=== PATIENT | female | born 1980 | race Caucasian/White ===

== ENCOUNTER → 2019-01-27 16:52 | Observation (INO) ==
[2019-01-27 16:39] LABS: Amphetamine Screen,Urine Negative ng/mL (Cutoff=1000); Barbiturate Screen,Urine Negative ng/mL (Cutoff=200); Benzodiazepines Screen,Urine Negative ng/mL (Cutoff=200); Cannabinoid Screen,Urine Negative ng/mL (Cutoff = 50); Cocaine Screen,Urine Negative ng/mL (Cutoff= 300); Opiate Screen,Urine Negative ng/mL (Cutoff=300); Phencyclidine Screen,Urine Negative ng/mL (Cutoff=25)
--- NOTE | 2019-01-27 16:44 | OB/GYN Progress Note ---
Date of Encounter: 01/27/19 Time of Encounter: 16:43 - Assessment and Plan (1) 39 weeks gestation of Current Visit: Yes Status: Acute (2) Uterine contractions Current Visit: Yes Status: Acute No cervical change on serial cervical exams. Discharged home with labor and when to return to triage instructions. Patient verbalizes understanding. Plan of care discussed with Dr. George (3) Previous section Current Visit: Yes Status: Acute Subjective - Subjective Interval history: 39+0 weeks gestation presents to triage with occasional contractions. Patient is a repeat . Reports good movement, denies vaginal bleeding or leaking of fluid. Sent from office for labor evaluation by Dr. Gauthier Antepartum ROS: movement normal, contractions, no loss of fluid, no vaginal bleeding Objective - Exam FHR: auscultation normal Abdomen: Present: soft, gravid Cervical dilation: /-2
== END | disposition home or self-care (01) ==
LOC: 1NENULAB
PROVIDERS: ADMIT Obstetrics & Gynecology; ATTEND Obstetrics & Gynecology

== ENCOUNTER 2019-02-02 05:43 | Inpatient (IN) ==
[2019-02-02] MEDS ORDERED: Metoclopramide 10 MG/2 ML VIAL IVP PRN ×2 (05:54→11:49)
[2019-02-02] MEDS ORDERED: Naloxone 0.4 MG/ML INJ IVP PRN (05:54)
[2019-02-02] MEDS ORDERED: Famotidine 20 MG/2 ML VIAL IVP PRN (05:54)
[2019-02-02] MEDS ORDERED: Ringers Solution, Lactated 1,000 ML IVC ONE (05:55)
[2019-02-02] MEDS ORDERED: Ringers Solution, Lactated 1,000 ML IVC SCH (06:00)
[2019-02-02] MEDS ORDERED: ceFAZolin 2,000 MG in Water for inj. (sterile) 20 ML IVP ONE (06:26)
[2019-02-02 06:31] LABS: Amphetamine Screen,Urine Negative ng/mL (Cutoff=1000)
[2019-02-02 06:32] LABS: Basophils % 0.5 %; Eosinophils # 0.1 K/mcL (0.0-0.6); Eosinophils % 0.9 %; Hematocrit 34.7 % (35.3-44.9); Hemoglobin 11.1 g/dL (11.5-15.4); Immature Granulocytes % 0.6 % (0-4); Lymphocytes # 1.9 K/mcL (0.6-4.6); Lymphocytes % 22.7 %; Mean Corpuscular Hemoglobin 27.5 pg (28.0-33.3); Mean Corpuscular Volume 86.1 fL (83.0-100.0); Mean Platelet Volume 10.1 fL (9.4-12.4); Monocytes # 0.6 K/mcL (0.0-1.3); Monocytes % 6.5 %; Neutrophils # 5.8 K/mcL (1.6-8.9); Platelet Count 219 K/mcL (140-400); Red Blood Count 4.03 M/mcL (3.82-4.97); Red Cell Distribution Width 14.1 % (11.5-14.5); Segmented Neutrophils % 68.8 %
[2019-02-02 06:32] LABS: Barbiturate Screen,Urine Negative ng/mL (Cutoff=200); Benzodiazepines Screen,Urine Negative ng/mL (Cutoff=300); Cannabinoid Screen,Urine Negative ng/mL (Cutoff = 50); Cocaine Screen,Urine Negative ng/mL (Cutoff= 300); Opiate Screen,Urine Negative ng/mL (Cutoff=300); Phencyclidine Screen,Urine Negative ng/mL (Cutoff=25)
[2019-02-02] MEDS ORDERED: *HR* OxyCODONE Immed Rel 5 MG TABLET PO PRN (06:50)
[2019-02-02] MEDS ORDERED: Ondansetron 4 MG/2 ML VIAL IVP ONE (06:51)
[2019-02-02] MEDS ORDERED: *HR* Labetalol 20 MG/4 ML SYRINGE IVP PRN (06:51)
--- NOTE | 2019-02-02 06:54 | Anesthesia Evaluation PreOp ---
Date of Encounter: 02/02/19 Time of Encounter: 06:45 - Past History Planned Operation: Repeat Cardiac History: Denies any Significant Hx Pulmonary History: Asthma (resolved), Other (Seasonal Allergies) RESEARCH TEST ENGINE EVALUATOR History: Denies Any Significant HX Other Medical History: Denies Any Significant HX Anesthesia History: Past Anesthesia () : Yes (39 weeks 6 days ) Alcohol Use: none Drug use: none Medications and Allergies Cetirizine HCl [Zyrtec] 10 mg PO DAILY 01/27/19 [History] Ferrous Sulfate [Iron] 325 mg PO BID 01/27/19 [History] Allergy/AdvReac Type Severity Reaction Status Date / Time No Known Allergies Allergy Verified 01/27/19 13:55 - Meds/Allergy Pre-op Review Medications Reviewed: Yes Allergies Reviewed: Yes Beta Blockers on Current Med List: No Anesthesia Results - Labs 02/02/19 05:54 Anesthesia Exam O2 Sat Height 1.6 m Weight 88.904 kg Vital Signs Temp Pulse Resp BP 97.9 F 100 15 120/84 02/02/19 06:11 02/02/19 06:11 02/02/19 06:11 02/02/19 06:11 Height: 5'3 Weight: 196 lbs NPO (# of Hours): MN Pain Scale: 0 - HEENT Pupil (Motor): Pupils equal, EOMI Mallampati: II Teeth: Normal Oral Opening: Greater than 3 - RESEARCH TEST ENGINE EVALUATOR LOC: Oriented RESEARCH TEST ENGINE EVALUATOR Motor: Normal RUE, Normal LUE, Normal RLE, Normal LLE, Normal Face RESEARCH TEST ENGINE EVALUATOR Sensory: Normal: RUE, LUE, RLE, LLE, Face - Cardiac Rhythm: Regular Murmur: None JVD: No Carotid Bruit: No - Pulmonary Breath Sounds: bilateral Clear Respiratory Effort: Symmetrical Anesthesia Assess/Plan ASA Score: 2 Level of consciousness: Cooperative, Oriented Anesthetic Plan: Spinal Autologous Blood: No Monitoring Plan: Standard Monitors Recovery Plan: PACU (Discussed SAB, possible GA, risks and benefits, agrees to proceed)
[2019-02-02] MEDS ORDERED: CeFAZolin Premix DUPLEX 2,000 MG/50 ML BAG IVPB ONE (07:00)
[2019-02-02] MEDS ORDERED: *HR* FentaNYL (PF) 100 MCG/2 ML VIAL ONE (07:36)
[2019-02-02] MEDS ORDERED: *HR* Morphine Sulfate/PF 10 MG/10 ML AMPUL ONE (07:36)
[2019-02-02] MEDS ORDERED: EPHEDrine 50 MG/ML VIAL ONE (07:39)
--- NOTE | 2019-02-02 07:44 | OB/GYN History & Physical ---
Date of Encounter: 02/02/19 Time of Encounter: 07:42 Assessment and Plan (1) AMA (advanced maternal age) multigravida 35+ Current visit: Yes Status: Chronic Qualifiers: Trimester: third trimester Qualified Code(s): O09.523 - Supervision of elderly multigravida, third trimester (2) 39 weeks gestation of Current visit: Yes Status: Chronic (3) Previous section Current visit: Yes Status: Chronic History of Present Illness HPI: Ms. Camarena is a 39 year old female Patient is 39-year-old 3 para 1 AB 1 white female who is at 39 weeks and 6/7. She is here for repeat low transverse section. Her has been uncomplicated. She has had weekly nonstress tests due to advanced maternal age. She reports active fetus. She denies spontaneous rupture membranes, vaginal bleeding and reports active fetus. Past Med Surg Social Fam HX - Past Medical History Medical history: asthma Additional medical history: reactive air disease Psychiatric history: no psych history - Past Surgical History Surgical History: Additional surgical history: tonsillectomy - Social History Smoking Status: Never smoker Smokeless Tobacco Status: No Alcohol use: none Drug use: none - Family History Father Living Status: Hx Family Endocrine Disorder: Yes (diabetes) Obstetrical History - Pregnancies : 3 Para: 1 Term: 1 Medications and Allergies Cetirizine HCl [Zyrtec] 10 mg PO DAILY 01/27/19 [History] Ferrous Sulfate [Iron] 325 mg PO BID 01/27/19 [History] Allergy/AdvReac Type Severity Reaction Status Date / Time No Known Allergies Allergy Verified 01/27/19 13:55 Review of System OB All systems PM: reviewed and no additional remarkable complaints except as stated - Genitourinary Genitourinary: amenorrhea - Menstruation Menstruation: amenorrhea Exam - Vital Signs Vital signs: Initial Vital Signs Temp Pulse Resp BP 97.9 F 100 15 120/84 02/02/19 06:11 02/02/19 06:11 02/02/19 06:11 02/02/19 06:11 - Constitutional Constitutional: well developed, well nourished, no acute distress, average body habitus - HEENT HEENT: Normocephaly - Neck Neck exam: full ROM - Lungs Respiratory exam: CTAB - Cardiovascular Cardiovascular exam: RRR - Abdomen Abdomen: Present: gravid, non tender - Extremities Extremities exam: full ROM Deep Tendon Reflex Grade: 2+ Normal - Vagina Vagina: Present: normal moisture - Uterus Uterus exam: Present: enlarged Results Result Diagrams: 02/02/19 05:54 Abnormal lab results Hgb 11.1 g/dL (11.5-15.4) L 02/02/19 05:54 Hct 34.7 % (35.3-44.9) L 02/02/19 05:54 MCH 27.5 pg (28.0-33.3) L 02/02/19 05:54 All other labs normal.
[2019-02-02] MEDS ORDERED: Acetaminophen IV 1,000 MG/100 ML INFUS..BTL IVPB ONE (08:16)
[2019-02-02] MEDS ORDERED: Ringers Solution, Lactated 2,000 ML ONE (08:29)
[2019-02-02] MEDS ORDERED: *HR* Oxytocin 10 UNIT/ML VIAL IM ONE ×2 (08:29→09:11)
[2019-02-02] MEDS ORDERED: Ondansetron 4 MG/2 ML VIAL ONE (08:49)
[2019-02-02] MEDS ORDERED: Dexamethasone 4 MG/ML VIAL ONE (08:49)
--- NOTE | 2019-02-02 09:01 | Anesthesia Procedures ---
Date of Encounter: 02/02/19 Time of Encounter: 08:08 Procedures: Anesthesia - Epidural/Spinal Patient ID/Chart reviewed: Yes Patient examined: Yes OB Eval: Gestational age: 39.6 OB Eval: : 3 OB Eval: Hx Para: 1 OB Eval: Dilated at (cm): 2 OB Eval: Contractions: Non-stressed pattern Consent Obtained: Yes Supplemental Oxygen: None/Room Air Site Prep: Aseptic Technique, Sterile prep and drape, Povidone-Iodine 1% Patient position: upright Local Anesthetic: Lidocaine 1% Amount of Local Anesthetic used: 3 Interspace Used: L4-L5 Blood: No CSF: Yes Paresthesia: Yes Spinal Needle Gauge: 22 Vitals + FHT's: stable throughout see nursing notes. bupivicaine 0.5% 2.2ml fentanyl 10mcg duramorph 0.3mg tolerated procedure well
[2019-02-02] MEDS ORDERED: Ringers Solution, Lactated 1,000 ML ONE (09:11)
--- NOTE | 2019-02-02 09:35 | OB/GYN Procedure Note ---
Section - Date of procedure: 02/02/19 Preop diagnosis: desires repeat Post-op diagnosis: other (Subserosal myomas and groin nevus) Procedure: repeat low transverse, other (Subserosal myomectomy and resection of groin nevus) Surgeon: Dar Danielle Blood Loss: 400 Was there an players assistant present: No Anesthesiologist: Mendez Thao Apparel Sales Leader: Ana Laura Najera Anesthesia Type: Spinal section complications: none Disposition: PACU - (s) A Delivery Date: 02/02/19 Delivery Time: 08:32 Presentation: vertex Position: ENA Gender: Female Pounds: 7 Ounces: 3 Gram Weight: 3.26 kg at 1 minute: 8 at 5 minutes: 9 Shoulder Dystocia: not encountered Placenta: complete extraction Cord: nuchal cord, nuchal reduced - Narrative Narrative: Patient is taken to the operating room. After satisfactory spinal anesthesia was achieved, patient was placed in supine position, Gage catheter inserted, prepped and draped in usual manner. After appropriate timeout and consent were obtained, the abdomen was entered through standard Maylard incision. The Ivy retractor was placed. Peritoneum overlying the lower uterine segment was incised in the U-shaped fashion. Uterus was entered sharply and extended laterally. Fluid was clear. With fundal pressure the head was delivered. Infant suctioned upon delivery of the head. Nuchal cord 2 was relieved. The remainder of the infant was delivered. The umbilical cord double clamped and cut and the was handed to nursery staff for further evaluation. Placenta was removed and sent to pathology for analysis. Uterus was closed with 0 Monocryl in a single layer. A large 3 cm subserosal fibroid was resected and sent to pathology for analysis. This area was oversewn with 0 Monocryl. There were multiple small fibroids approximately 1 cm in diameter and they were destroyed using the cautery device. After assurance of hemostasis the uterus was placed back within the abdominal cavity. Retractor was removed. The abdomen was closed standard fashion using a 0 PDS strata fix on the fascia. 2-0 Vicryl was used on the subcutaneous. 3-0 Monocryl was used on the skin. The groin nevus was then resected and sent to pathology for analysis. Reinaldo was controlled with cautery. Sterile dressing was applied. Faby dressing was applied. She did well was taken to recovery in satisfactory condition. Counts were correct.
[2019-02-02] MEDS ORDERED: Oxytocin 20 units/ LR 1000 mL 20 UNIT/1,000 ML BAG IVC ONE (10:57)
[2019-02-02] MEDS ORDERED: Oxytocin 20 units/ LR 1000 mL 20 UNIT/1,000 ML BAG IVC SCH (11:49)
[2019-02-02] MEDS ORDERED: Ondansetron 4 MG/2 ML VIAL IVP PRN (11:49)
[2019-02-02] MEDS ORDERED: Sennosides 8.6 MG TABLET PO PRN (11:49)
--- NOTE | 2019-02-02 21:32 | Anesthesia Evaluation Post Op ---
Date of Encounter: 02/02/19 Time of Encounter: 10:30 - Vital Signs Vital Signs: Vital Signs/O2 Sat/Glucose, Most Current Temp Pulse Resp BP Pulse Ox 02/02/19 20:15 17 02/02/19 19:01 97.7 F 96 16 122/83 98 - Lungs Lungs: Clear Ascult./Percussion - Airway Airway: Non-obstructed - Cardiovascular Regular Rate - Mental Status Mental Status: Alert & Oriented, Answers Appropriately - Pain Pain Scale: 0 - Nausea Vomiting Nausea Vomiting: Not Present - Hydration Hydration: NPO, Ice chips - Discharge PostOp Status: Transfer Patient to floor
[2019-02-03 04:52] LABS: Basophils % 0.3 %; Eosinophils % 0.4 %; Hematocrit 30.7 % (35.3-44.9); Hemoglobin 9.9 g/dL (11.5-15.4); Immature Granulocytes % 0.5 % (0-4); Lymphocytes # 1.8 K/mcL (0.6-4.6); Lymphocytes % 16.6 %; Mean Corpuscular HGB Conc 32.2 g/dL (31.6-35.5); Mean Corpuscular Hemoglobin 27.7 pg (28.0-33.3); Mean Platelet Volume 10.3 fL (9.4-12.4); Monocytes # 0.7 K/mcL (0.0-1.3); Monocytes % 6.8 %; Platelet Count 208 K/mcL (140-400); Red Blood Count 3.57 M/mcL (3.82-4.97); Segmented Neutrophils % 75.4 %
[2019-02-03] MEDS: Ibuprofen 600 MG TABLET PO PRN ×2 (06:38→13:04)
--- NOTE | 2019-02-03 08:35 | OB/GYN Progress Note ---
Date of Encounter: 02/03/19 Time of Encounter: 08:33 - Assessment and Plan (1) delivery delivered Current Visit: Yes Status: Acute Pt meeting POD1 milestones. Regular diet today. Await flatus. Anticipate discharge home in am. Subjective - Subjective Interval history: Pt reports feeling much better today. SHe had significant nausea and vomiting yesterday that has now resolved. No complaints at this time. Patient reports: voiding normally, pain well controlled, ambulating normally : doing well, bottle feeding Objective - Vital Signs Latest vital signs: Vital Signs Temp Pulse Resp BP Pulse Ox 02/03/19 07:49 98.2 F 92 16 117/78 02/03/19 00:15 98 F 89 16 114/70 96 02/02/19 20:15 17 02/02/19 19:01 97.7 F 96 16 122/83 98 02/02/19 14:40 16 02/02/19 14:30 97.5 F L 108 16 131/85 02/02/19 13:30 97.8 F 89 16 116/66 02/02/19 12:34 97.7 F 87 16 113/75 02/02/19 12:33 97.7 F 87 16 113/75 02/02/19 12:05 97.7 F 92 16 117/74 02/02/19 12:00 97.7 F 92 16 117/74 02/02/19 11:30 16 02/02/19 11:28 97.5 F L 80 14 104/68 97 Intake and Output 02/02/19 02/03/19 02/03/19 23:59 07:59 15:59 Output Total 900 / 1650 1900 / 2700 800 / 2700 Balance -900 / -1410 -1900 / -2700 -800 / -2700 Output: Urine 800 / 800 Emesis 100 / 450 Catheter 800 / 800 1900 / 1900 Other: Weight 83.688 kg Patient Weight 02/03/19 23:59 Weight 83.688 kg - Exam Lungs: bilateral: normal Chest: Normal S1, Normal S2 Extremities: Present: normal Abdomen: Present: soft, distention (tympanic to percussion) Incision: Present: dressed (dressing dry and intact) Uterus: Present: firm Fundal Height: 2 (U/2) - Labs Labs: Laboratory Results - last 24 hr 02/03/19 04:24 WBC 10.6 RBC 3.57 L Hgb 9.9 L Hct 30.7 L MCV 86.0 MCH 27.7 L MCHC 32.2 RDW 14.0 Plt Count 208 MPV 10.3 Immature Gran % 0.5 Seg Neutrophils % 75.4 Lymphocytes % 16.6 Monocytes % 6.8 Eosinophils % 0.4 Basophils % 0.3 Neutrophils # 8.0 Lymphocytes # 1.8 Monocytes # 0.7 Eosinophils # 0.0 Basophils # 0.0
[2019-02-03] MEDS: Prenatal Vit/FA 1 EACH TABLET PO SCH (08:42)
[2019-02-03] MEDS: Loratadine 10 MG TABLET PO SCH (08:42)
[2019-02-03] MEDS: *HR* OxyCODONE/APAP 5/325 TABLET PO PRN (18:43)
[2019-02-03] MEDS: Simethicone 80 MG TAB.CHEW PO PRN (22:21)
[2019-02-04] MEDS: *HR* OxyCODONE/APAP 5/325 TABLET PO PRN ×2 (00:02→08:06)
[2019-02-04] MEDS: Prenatal Vit/FA 1 EACH TABLET PO SCH (08:06)
[2019-02-04] MEDS: Ibuprofen 600 MG TABLET PO PRN (08:06)
[2019-02-04] MEDS: Simethicone 80 MG TAB.CHEW PO PRN (08:06)
[2019-02-04] MEDS: Loratadine 10 MG TABLET PO SCH (08:09)
[2019-02-04 08:43] VITALS: BP 116/76
--- NOTE | 2019-02-04 09:51 | Discharge Summary ---
Date of Encounter: 02/04/19 Time of Encounter: 09:49 - Discharge Diagnosis (1) delivery delivered Priority: Primary Status: Acute Comments: Stable, meeting PP milestones ,pain well managed on po pain medication, tolerat es diet, bottlefeeding, desires discharge. - Discharge Medications Prescriptions: New Ferrous Sulfate 325 mg PO DAILY #30 tablet Ibuprofen [Motrin] 600 mg PO Q6HR PRN #60 tablet PRN Reason: Cramping OxyCODONE/APAP 5/325 [Percocet 5/325 MG] 1 each PO Q4HR PRN 5 Days #20 tablet PRN Reason: Moderate pain 4-6 Docusate [Colace] 100 mg PO BID #30 capsule Simethicone [Gas-X] 80 mg PO TID PRN tab.chew PRN Reason: Dyspepsia Continued Cetirizine HCl [Zyrtec] 10 mg PO DAILY Discontinued Ferrous Sulfate [Iron] 325 mg PO BID Home Medications: Cetirizine HCl [Zyrtec] 10 mg PO DAILY 01/27/19 [History] Docusate [Colace] 100 mg PO BID #30 capsule 02/04/19 [Rx] Ferrous Sulfate 325 mg PO DAILY #30 tablet 02/04/19 [Rx] Ibuprofen [Motrin] 600 mg PO Q6HR PRN #60 tablet 02/04/19 [Rx] OxyCODONE/APAP 5/325 [Percocet 5/325 MG] 1 each PO Q4HR PRN 5 Days #20 tablet 02/04/19 [Rx] Simethicone [Gas-X] 80 mg PO TID PRN tab.chew 02/04/19 [Rx] Allergies/Adverse Reactions: Allergy/AdvReac Type Severity Reaction Status Date / Time No Known Allergies Allergy Verified 01/27/19 13:55 Data Procedures and tests throughout hospitalization: Laboratory Tests 02/02/19 02/02/19 02/03/19 05:54 06:20 04:24 WBC 8.5 10.6 RBC 4.03 3.57 L Hgb 11.1 L 9.9 L Hct 34.7 L 30.7 L MCV 86.1 86.0 MCH 27.5 L 27.7 L MCHC 32.0 32.2 RDW 14.1 14.0 Plt Count 219 208 MPV 10.1 10.3 Immature Gran % 0.6 0.5 Seg Neutrophils % 68.8 75.4 Lymphocytes % 22.7 16.6 Monocytes % 6.5 6.8 Eosinophils % 0.9 0.4 Basophils % 0.5 0.3 Neutrophils # 5.8 8.0 Lymphocytes # 1.9 1.8 Monocytes # 0.6 0.7 Eosinophils # 0.1 0.0 Basophils # 0.0 0.0 Urine Opiates Screen Negative Ur Barbiturates Screen Negative Ur Phencyclidine Scrn Negative Ur Amphetamines Screen Negative U Benzodiazepines Scrn Negative Urine Cocaine Screen Negative U Marijuana (THC) Screen Negative Ur Drug Screen Interp See Below Date of admission: 02/02/19 05:43 Primary care physician: PCP NONE Discharging clinician: Smiley Cruz Anticipated date of discharge: 02/04/19 - Patient Status Disposition: Home, Self-Care Condition: Good Functional capacity at discharge: independent ambulation Overall status at discharge: patient is progressing back to baseline - Discharge Instructions Follow Up With: NONE,PCP [Primary Care Provider] - Dar Gauthier MD [Partnered Physician] - - Diet and Activity Activity: resume usual activities as tolerated Diet: regular diet Hospital Course Reason for admission: section Delivery: section Episiotomy: none Laceration: none Other procedures: none complications: none Discharge diagnosis: IUP at term delivered baby: female Hospital course: Section - Date of procedure: 02/02/19 Preop diagnosis: desires repeat Post-op diagnosis: other (Subserosal myomas and groin nevus) Procedure: repeat low transverse, other (Subserosal myomectomy and resection of groin nevus) Surgeon: Dar Gauthier Quantitated Blood Loss: 400 Was there an laboratory assistant present: No Anesthesiologist: Mendez Thao Donkey Ride Operator: Ana Laura Najera Anesthesia Type: Spinal section complications: none Disposition: PACU - (s) A Infant Delivery Date: 02/02/19 Delivery Time: 08:32 Presentation: vertex Position: ENA Gender: Female Pounds: 7 Ounces: 3 Gram Weight: 3.26 kg at 1 minute: 8 at 5 minutes: 9 Shoulder Dystocia: not encountered Placenta: complete extraction Cord: nuchal cord, nuchal reduced Appropriate for discharge, OARRS reviewed Time Attestation: Total time spent providing and/or coordinating discharge services: Time Spent: Less than 30 minutes - VTE Documentation of Mechanical Device: Intermittent pneumatic compression device Exam - Constitutional Vitals: Temp Pulse Resp BP Pulse Ox 98 F 85 16 116/76 98 02/04/19 08:40 02/04/19 08:40 02/04/19 08:40 02/04/19 08:40 02/04/19 08:40 General appearance IM: A&O X 3 - Respiratory Respiratory exam: Present: CTAB - Cardiovascular Cardiovascular exam IM: Present: RRR - GI/Abdominal GI/Abdominal exam IM: soft Incision: intact (BENITO) - Uterine Tone: Firm Uterus Position: At Umbilicus - Extremities Exam Extremities exam IM: Present: normal capillary refill, normal inspection, pedal edema - Neurological Exam Neurological exam: normal gait, oriented X3 - Psychiatric Additional comments: reports good mood
== END 2019-02-04 12:40 | disposition home or self-care (01) | DRG 788 ==
LOC: 1NENULAB 05:43 → 1NENUOBS 11:26
PROVIDERS: ADMIT Obstetrics & Gynecology; ATTEND Obstetrics & Gynecology